=== PATIENT | female | born 1930 | race Caucasian/White ===

== ENCOUNTER 2019-06-02 10:58 | Inpatient (IN) | payer MEDICARE ==
[~2019-06-02] VITALS: Ht 152.4 cm; Wt 72.9 kg
[~2019-06-02 10:58] MED LIST: ABAT250V; ASPI81CH; ASPI81CH PO; ATOR40TA PO; BENZ100A PO; BUME2 PO; BUPR100 PO; Bactrim Ds Tab1 EACH PO; CARV25 PO; CARV6.25 PO; CEPH500 PO; CETI5; CITA20; CITA20 PO; FURO20 PO; Ferrous Sulfat325 MG; GABA300 PO; Keflex500 MG PO; LISI5 PO; Mucinex600 MG; Naprosyn500 MG PO; Norco 5-325 Ta1 EACH PO; OMEP10ER PO; PANT40 PO; POTA10T PO; SERT50 PO; Zofran Odt4 MG PO; Zofran Odt4 MG SL
[2019-06-02 11:46] LABS: BASOPHILS ABSOLUTE AUTO 0.06 K/mm3 (0.00-0.23); BASOPHILS PERCENT AUTO 1 % (0-2); EOSINOPHILS ABSOLUTE AUTO 0.09 K/mm3 (0.00-0.68); EOSINOPHILS PERCENT AUTO 1 % (0-6); Hematocrit 37.2 % (33.0-51.0); Hemoglobin 11.4 g/dL (11.5-16.0); IMMATURE GRAN ABSOLUTE AUTO 0.03 K/mm3 (0.00-0.10); IMMATURE GRAN PERCENT AUTO 1 % (0-1); LYMPHOCYTES ABSOLUTE AUTO 0.89 K/mm3 (0.84-5.20); LYMPHOCYTES PERCENT AUTO 14 % (21-46); MONOCYTES ABSOLUTE AUTO 0.89 K/mm3 (0.16-1.47); MONOCYTES PERCENT AUTO 14 % (4-13); Mean Corpuscular HGB 28.6 pg (26.0-34.0); Mean Corpuscular HGB Conc 30.6 g/dL (31.5-36.5); Mean Corpuscular Volume 94 fL (80-100); Mean Platelet Volume 10.1 fL (9.1-12.4); NEUTROPHILS ABSOLUTE AUTO 4.52 K/mm3 (1.96-9.15); NEUTROPHILS PERCENT AUTO 70 % (41-73); Platelet Count 212 K/mm3 (150-400); RDW Coefficient Variation 14.7 % (11.7-14.2); RDW Standard Deviation 50.8 fL (35.1-46.3); Red Blood Cell Count 3.98 M/mm3 (3.80-5.20); White Blood Cell Count 6.48 K/mm3 (4.00-11.30)
[2019-06-02 12:06] LABS: Alanine Aminotransfer (ALT/SGP 54 U/L (12-78); Albumin, Blood 3.7 g/dL (3.4-5.0); Albumin/Globulin Ratio 1.1 (0.8-1.8); Alk Phos 120 U/L (50-136); Anion Gap 6 mmol/L (6-16); Aspartate Aminotrans (AST/SGOT 66 U/L (12-37); Bilirubin, Total 1.8 mg/dL (0.1-1.0); Blood Urea Nitrogen 17 mg/dL (8-24); CO2, Blood 27 mmol/L (21-32); Calcium, Blood 9.5 mg/dL (8.5-10.1); Chloride, Blood 105 mmol/L (98-108); Creatinine, Blood 0.81 mg/dL (0.40-1.00); Globulin, Blood 3.4 g/dL (2.2-4.0); Glomerular Filtration Rate >60 (60-); Glucose, Blood 108 mg/dL (70-99); Potassium, Blood 3.1 mmol/L (3.5-5.5); Sodium, Blood 138 mmol/L (136-145); Total Protein, Blood 7.1 g/dL (6.4-8.2); Troponin I 0.046 ng/mL (0.000-0.040)
[2019-06-02] MEDS ORDERED: GABA300 PO (12:50)
[2019-06-02] MEDS ORDERED: TRAZ50 PO (12:51)
[2019-06-02] MEDS ORDERED: LOSA25 PO (12:52)
[2019-06-02] MEDS ORDERED: SERT25 PO (12:52)
[2019-06-02] MEDS ORDERED: METO25ER PO (12:52)
[2019-06-02] MEDS ORDERED: OMEP20ER PO (13:15)
[2019-06-02 16:12] LABS: International Normalized Ratio 1.21; Prothrombin Time Results 12.8 Sec (9.7-11.5)
--- NOTE | 2019-06-02 17:43 | NUR ---
CODE STATUS THIS RN TALKED WITH PT ABOUT CODE STATUS AND PT REPORTS SHE WANTS TO BE A DNR. THIS RN TALKED WITH DR. WALLACE AND NOTIFIED HIM OF THIS AND THAT PT WAS A FULL CODE. DR. WALLACE REPORTS HE WILL MAKE A NOTE OF THIS AND A PHYSICIAN WILL TALK WITH PT ABOUT CODE STATUS.
--- NOTE | 2019-06-02 18:57 | NUR ---
SHIFT SUMMARY PT IS A NEW ADMISSION THIS AFTERNOON FROM ED. PT IS ALERT AND ORIENTED X3. DENIES PAIN AND NAUSEA THIS SHIFT. APPETITE GOOD. IVF INFUSING WITHOUT DIFFICULTY. PT JUST VOIDED SINCE ADMITTED TO THE FLOOR AND URINE WAS DARK YELLOW. NO COMPLAINTS OF DIZZINESS WHEN UP TO BATHROOM. PT DOES HAVE SHORTNESS OF BREATH WITH EXERTION AND REPORTS THIS IS NORMAL FOR HER. NO DISTRESS AT THIS TIME. CALL LIGHT IN REACH. WILL CONTINUE TO MONITOR AND REPORT TO ONCOMING RN.
[2019-06-03 03:25] LABS: International Normalized Ratio 1.28; Prothrombin Time Results 13.5 Sec (9.7-11.5)
[2019-06-03 03:26] LABS: Anion Gap 5 mmol/L (6-16); Blood Urea Nitrogen 17 mg/dL (8-24); CO2, Blood 25 mmol/L (21-32); Calcium, Blood 8.4 mg/dL (8.5-10.1); Chloride, Blood 112 mmol/L (98-108); Creatinine, Blood 0.81 mg/dL (0.40-1.00); Glomerular Filtration Rate >60 (60-); Glucose, Blood 98 mg/dL (70-99); Potassium, Blood 3.4 mmol/L (3.5-5.5); Sodium, Blood 142 mmol/L (136-145)
--- NOTE | 2019-06-03 06:34 | NUR ---
SHIFT SUMMARY: PATIENT IS A&OX4, VERY [place], HEARING AIDE WAS LEFT AT HOME. AT START OF SHIFT PATIENT HAD HTN AND A HR OF A FIB @ 112. PATIENT WAS ASYMPTOMATIC. VS WERE MONITORED AND CHARGE NURSE LUISA AWARE. @ 2120 BP 157/89 HR A FIB 117. @ 2338 BP 132/91 HR A FIB 91, LOPRESSOR 12.5 MG WAS GIVEN PER MAY. THIS AM BP IS 140/77 HR A FIB 89.
--- NOTE | 2019-06-03 11:12 | NUR ---
PROVIDER CONSULT THIS RN PAGED DR. SANTILLAN WITH NUMBER PROVIDED. NO CALL BACK AT THIS TIME. WILL TRY AGAIN LATER [facility]
--- NOTE | 2019-06-03 17:22 | NUR ---
SHIFT SUMMARY PT HAS HAD NO COMPLAINTS THIS SHIFT. PT UP TO BATHROOM WITH ASSIST AND CONTINUES TO HAVE SHORTNESS OF BREATH WITH AMBULATION. HEART RATE HAS BEEN CONTROLLED THIS SHIFT. PT HAS A GOOD APPETITE WITH NO COMPLAINTS OF NAUSEA. NO ACUTE CHANGES THIS SHIFT. WILL CONTINUE TO MONITOR AND REPORT TO ONCOMING RN. CALL LIGHT IN REACH.
--- NOTE | 2019-06-04 04:44 | NUR ---
SHIFT SUMMARY PT IS A/O X4. NEEDS STANDBY ASSIST TO COMMODE. TELE HAS BEEN IN PLACE PER ORDERS. PT ON ROOM AIR DURING THE NIGHT. NO C/O OF PAIN, SOB, OR CHEST PAIN. TOLERATING PO INTAKE AND VOIDING. ASSISTED WITH ADL'S PRN.
[2019-06-04 05:18] LABS: BASOPHILS ABSOLUTE AUTO 0.05 K/mm3 (0.00-0.23); BASOPHILS PERCENT AUTO 1 % (0-2); EOSINOPHILS ABSOLUTE AUTO 0.29 K/mm3 (0.00-0.68); EOSINOPHILS PERCENT AUTO 6 % (0-6); Hematocrit 32.9 % (33.0-51.0); Hemoglobin 9.8 g/dL (11.5-16.0); IMMATURE GRAN ABSOLUTE AUTO 0.02 K/mm3 (0.00-0.10); IMMATURE GRAN PERCENT AUTO 0 % (0-1); LYMPHOCYTES ABSOLUTE AUTO 1.31 K/mm3 (0.84-5.20); LYMPHOCYTES PERCENT AUTO 25 % (21-46); MONOCYTES ABSOLUTE AUTO 0.65 K/mm3 (0.16-1.47); MONOCYTES PERCENT AUTO 13 % (4-13); Mean Corpuscular HGB 28.6 pg (26.0-34.0); Mean Corpuscular HGB Conc 29.8 g/dL (31.5-36.5); Mean Corpuscular Volume 96 fL (80-100); Mean Platelet Volume 10.5 fL (9.1-12.4); NEUTROPHILS ABSOLUTE AUTO 2.84 K/mm3 (1.96-9.15); NEUTROPHILS PERCENT AUTO 55 % (41-73); Platelet Count 172 K/mm3 (150-400); RDW Coefficient Variation 15.4 % (11.7-14.2); RDW Standard Deviation 54.4 fL (35.1-46.3); Red Blood Cell Count 3.43 M/mm3 (3.80-5.20); White Blood Cell Count 5.16 K/mm3 (4.00-11.30)
[2019-06-04 05:20] LABS: International Normalized Ratio 1.28; Prothrombin Time Results 13.5 Sec (9.7-11.5)
[2019-06-04 05:30] LABS: Anion Gap 4 mmol/L (6-16); Blood Urea Nitrogen 20 mg/dL (8-24); Bun/Creatinine Ratio 22.8 (12.0-20.0); CO2, Blood 26 mmol/L (21-32); Calcium, Blood 8.4 mg/dL (8.5-10.1); Chloride, Blood 112 mmol/L (98-108); Creatinine, Blood 0.88 mg/dL (0.40-1.00); Glomerular Filtration Rate >60 (60-); Glucose, Blood 105 mg/dL (70-99); Potassium, Blood 3.8 mmol/L (3.5-5.5); Sodium, Blood 142 mmol/L (136-145)
[2019-06-04] MEDS ORDERED: Metoprolol Tart25 MG PO (16:58)
[2019-06-04] MEDS ORDERED: FURO20 PO (16:59)
[2019-06-04] MEDS ORDERED: Zofran4 MG PO (17:00)
[2019-06-04] MEDS ORDERED: Coumadin2 MG PO (17:01)
--- NOTE | 2019-06-04 17:49 | NUR ---
DISCHARGE NOTE PT DISCHARGED TO HOME. PT LEFT ROOM PRIOR TO THIS NOTE VIA WHEELCHAIR AND RN ESCORT. IV DC'D AND BELONGINGS RETURNED. DISCHARGE INSTRUCTIONS DISCUSSED WITH PATIENT INCLUDING EXTENSIVE COUMADIN EDUCATION, ALL QUESTIONS ANSWERED. PT AGREES TO FOLLOW UP WITH [facility] FOR FOLLOW UP APPOINTMENT AND LABS.
== END 2019-06-04 17:36 | disposition home or self-care (01) | DRG 291 ==
LOC: ER 10:58 → MEDS 13:55
PROVIDERS: Emergency Medicine; Family Medicine; ADMIT Internal Medicine Endocrinology, Diabetes & Metabolism
DX: I13.0 Hypertensive heart and chronic kidney disease with heart failure and stage 1 through stage 4 chronic kidney disease, or unspecified chronic kidney disease (principal); I50.23 Acute on chronic systolic (congestive) heart failure; I24.8 Other forms of acute ischemic heart disease; I48.19 Other persistent atrial fibrillation; E87.6 Hypokalemia; F32.9 Major depressive disorder, single episode, unspecified; G31.84 Mild cognitive impairment of uncertain or unknown etiology; I25.10 Atherosclerotic heart disease of native coronary artery without angina pectoris; I25.2 Old myocardial infarction; I27.20 Pulmonary hypertension, unspecified; K21.9 Gastro-esophageal reflux disease without esophagitis; N18.3 Chronic kidney disease, stage 3 (moderate); D64.9 Anemia, unspecified; I08.1 Rheumatic disorders of both mitral and tricuspid valves; E78.5 Hyperlipidemia, unspecified; I42.9 Cardiomyopathy, unspecified; I95.1 Orthostatic hypotension; E86.0 Dehydration; G47.00 Insomnia, unspecified; M17.0 Bilateral primary osteoarthritis of knee
CPT/HCPCS: 36415; 70450; 80048; 80053; 84484; 85025; 85610; 93005; 93010; 93306; 96360; 97110; 97116; 97162; 97165; 97535; 99285-25; A9270-GY; J1650; J3480; J7030

== ENCOUNTER 2019-07-09 14:45 | Emergency (ER) | payer MEDICARE ==
[~2019-07-09] VITALS: Ht 152.4 cm; Wt 81.7 kg
[~2019-07-09 14:45] MED LIST changes: +Coumadin2 MG PO; +LOSA25 PO; +METO25ER PO; +Metoprolol Tart25 MG PO; +OMEP20ER PO; +SERT25 PO; +TRAZ50 PO; +Zofran4 MG PO
[2019-07-09] MEDS ORDERED: LOSARTAN POTASS25 M2 PO (15:07)
[2019-07-09] MEDS ORDERED: OMEPRAZOLE MAGN20 MG PO (15:42)
[2019-07-09] MEDS ORDERED: SERT25 PO (15:43)
[2019-07-09] MEDS ORDERED: TRAZ50 PO (15:43)
[2019-07-09] MEDS ORDERED: ONDA4 PO (15:43)
[2019-07-09] MEDS ORDERED: Coumadin2 MG PO (15:44)
[2019-07-09 15:50] LABS: BASOPHILS ABSOLUTE AUTO 0.04 K/mm3 (0.00-0.23); BASOPHILS PERCENT AUTO 1 % (0-2); EOSINOPHILS ABSOLUTE AUTO 0.02 K/mm3 (0.00-0.68); EOSINOPHILS PERCENT AUTO 0 % (0-6); Hematocrit 37.1 % (33.0-51.0); Hemoglobin 10.7 g/dL (11.5-16.0); IMMATURE GRAN ABSOLUTE AUTO 0.03 K/mm3 (0.00-0.10); IMMATURE GRAN PERCENT AUTO 0 % (0-1); LYMPHOCYTES ABSOLUTE AUTO 0.84 K/mm3 (0.84-5.20); LYMPHOCYTES PERCENT AUTO 11 % (21-46); MONOCYTES PERCENT AUTO 12 % (4-13); Mean Corpuscular HGB 26.1 pg (26.0-34.0); Mean Corpuscular HGB Conc 28.8 g/dL (31.5-36.5); Mean Corpuscular Volume 91 fL (80-100); Mean Platelet Volume 10.5 fL (9.1-12.4); NEUTROPHILS ABSOLUTE AUTO 5.97 K/mm3 (1.96-9.15); NEUTROPHILS PERCENT AUTO 77 % (41-73); NRBC ABSOLUTE 0.07 K/mm3 (0.00-0.02); NRBC Auto 0.9 /100 WBC (0.0-0.2); Platelet Count 169 K/mm3 (150-400); RDW Coefficient Variation 16.9 % (11.7-14.2); RDW Standard Deviation 56.1 fL (35.1-46.3)
[2019-07-09 16:09] LABS: International Normalized Ratio 1.8; Prothrombin Time Results 18.6 Sec (9.7-11.5)
[2019-07-09 16:10] LABS: Anion Gap 8 mmol/L (6-16); Blood Urea Nitrogen 35 mg/dL (8-24); Bun/Creatinine Ratio 39.5 (12.0-20.0); CO2, Blood 25 mmol/L (21-32); Calcium, Blood 9.2 mg/dL (8.5-10.1); Chloride, Blood 105 mmol/L (98-108); Creatinine, Blood 0.89 mg/dL (0.40-1.00); Glomerular Filtration Rate >60 (60-); Glucose, Blood 129 mg/dL (70-99); Potassium, Blood 4.3 mmol/L (3.5-5.5); Sodium, Blood 138 mmol/L (136-145)
== END 2019-07-09 18:19 | disposition home or self-care (01) ==
LOC: ER 14:45
PROVIDERS: Emergency Medicine
DX: I50.9 Heart failure, unspecified (principal); I48.91 Unspecified atrial fibrillation; N18.3 Chronic kidney disease, stage 3 (moderate); I25.10 Atherosclerotic heart disease of native coronary artery without angina pectoris
CPT/HCPCS: 36415; 80048; 83880; 85025; 85610; 96374; 99285-25; J1940

== ENCOUNTER 2019-07-20 15:55 | Inpatient (IN) | payer MEDICARE ==
[~2019-07-20] VITALS: Ht 152.4 cm; Wt 73.2 kg
[~2019-07-20 15:55] MED LIST changes: +LOSARTAN POTASS25 M2 PO; +OMEPRAZOLE MAGN20 MG PO; +ONDA4 PO
[2019-07-20 18:29] LABS: BASOPHILS ABSOLUTE AUTO 0.04 K/mm3 (0.00-0.23); BASOPHILS PERCENT AUTO 1 % (0-2); EOSINOPHILS ABSOLUTE AUTO 0.09 K/mm3 (0.00-0.68); EOSINOPHILS PERCENT AUTO 2 % (0-6); Hematocrit 36.4 % (33.0-51.0); Hemoglobin 10.4 g/dL (11.5-16.0); IMMATURE GRAN ABSOLUTE AUTO 0.03 K/mm3 (0.00-0.10); IMMATURE GRAN PERCENT AUTO 1 % (0-1); LYMPHOCYTES ABSOLUTE AUTO 1.22 K/mm3 (0.84-5.20); LYMPHOCYTES PERCENT AUTO 20 % (21-46); MONOCYTES ABSOLUTE AUTO 1.03 K/mm3 (0.16-1.47); MONOCYTES PERCENT AUTO 17 % (4-13); Mean Corpuscular HGB 25.4 pg (26.0-34.0); Mean Corpuscular HGB Conc 28.6 g/dL (31.5-36.5); Mean Corpuscular Volume 89 fL (80-100); Mean Platelet Volume 11.2 fL (9.1-12.4); NEUTROPHILS PERCENT AUTO 60 % (41-73); NRBC ABSOLUTE 0.02 K/mm3 (0.00-0.02); NRBC Auto 0.3 /100 WBC (0.0-0.2); Platelet Count 155 K/mm3 (150-400); RDW Coefficient Variation 17.4 % (11.7-14.2); RDW Standard Deviation 56.6 fL (35.1-46.3); Red Blood Cell Count 4.09 M/mm3 (3.80-5.20); White Blood Cell Count 6.01 K/mm3 (4.00-11.30)
[2019-07-20 18:46] LABS: International Normalized Ratio 1.53
[2019-07-20 18:53] LABS: Alanine Aminotransfer (ALT/SGP 35 U/L (12-78); Albumin, Blood 3.2 g/dL (3.4-5.0); Alk Phos 139 U/L (50-136); Anion Gap 6 mmol/L (6-16); Aspartate Aminotrans (AST/SGOT 35 U/L (12-37); Bilirubin, Total 1.4 mg/dL (0.1-1.0); Blood Urea Nitrogen 27 mg/dL (8-24); Bun/Creatinine Ratio 30.8 (12.0-20.0); CO2, Blood 27 mmol/L (21-32); Calcium, Blood 8.8 mg/dL (8.5-10.1); Chloride, Blood 106 mmol/L (98-108); Creatinine, Blood 0.88 mg/dL (0.40-1.00); Globulin, Blood 3.3 g/dL (2.2-4.0); Glomerular Filtration Rate >60 (60-); Glucose, Blood 114 mg/dL (70-99); Potassium, Blood 3.9 mmol/L (3.5-5.5); Sodium, Blood 139 mmol/L (136-145); Total Protein, Blood 6.5 g/dL (6.4-8.2); Troponin I 0.095 ng/mL (0.000-0.040)
--- NOTE | 2019-07-20 19:30 | NUR ---
ASSUMED CARE. SYED IS AOX3 BUT HAS PERIODS OF FORGETFULNESS. "I PEE'D AND NOW I AM PEEING AGAIN." SHE STATED. EDUCATION WAS DONE ON LASIX AND HOW IT WORKS. 16F MAGALLANES CATHETER PLACED WITH NO DIFFICULTY. CLEAR YELLOW URINE ON RETURN. ATTACHED TO STAT LOCK ON RIGHT LEG. LINEN CHANGED DUE TO SATURATION. LUNG SOUNDS WITH FINE CRACKLES, NO COUGH, SOB ON EXERTION. CLEAN ATTENDS APPLIED. REDNESS NOTED IN CREASE OF GROIN, BABY POWDER APPLIED. REPOSITIONED UP IN BED. WARM BLANKETS WERE GIVEN. PHARMACY CALLED ASKING FOR WARFARIN DOSAGE AMOUNT, PATIENT STATES SHE DOES NOT KNOW AMOUNT, INFORMED PHARMACY. CALL LIGHT GIVEN. WILL CONTINUE TO MONITOR.
[2019-07-20 20:07] LABS: Source, Urine Catheter
[2019-07-20 20:10] LABS: Appearance, Urine Clear (Clear); Bilirubin, Urine Neg (Neg); Blood, Urine Neg (Neg); Color, Urine Yellow (P-Yellow); Glucose Qualitative, Urine Neg (Neg); Ketones, Urine Neg (Neg); Leukocyte Esterase, Urine Neg (Neg); Nitrite, Urine Neg (Neg); Protein, Urine Neg (Neg); Urobilinogen, Urine NORM (Normal); pH, Urine 6.5 (5.0-8.0)
--- NOTE | 2019-07-20 21:49 | NUR ---
PATIENT SON WAS CALLED FOR DOSAGE AMOUNT, HE RETURNED CALL. STATES 2MG DAILY. GAVE DOSE AMOUNT TO PHARMACY, ALSO DOUBLE CHECKED MED LIST. GAVE COUMADIN 5MG PER PHARMACY ORDER. CATHETER PATIENT AND DRAINING WELL. TAKES MEDS IN PUDDING. GAVE ICE WATER. NO OTHER NEEDS NOTED. STATES SHE WILL BE GOING TO SLEEP NOW.
--- NOTE | 2019-07-21 00:51 | NUR ---
SYED IS SLEEPING COMFORTABLY, NO SIGNS OF DISTRESS. SHE IS SIDEWAYS IN THE BED. WHEN AWAKENING HER SHE SAID SHE DOES NOT WANT TO MOVE, SHE IS COMFORTABLE. CATHETER IS STILL PATENT AND FLOWING.
--- NOTE | 2019-07-21 04:47 | NUR ---
SHIFT SUMMARY: 89 Y/O ADMITTED FOR CHF EXACERBATION. AOX3 FORGETFUL AT TIMES. COOPERATIVE. LUNG SOUNDS FINE CRACKLES THROUGHOUT, COUGH NON-PRODUCTIVE. PITTING EDEMA FROM ANKLES TO MID TORSAL. REDNESS NOTED TO INNER THIGHS, GROIN, AND SIDES OF ABDOMIN FROM SWELLING. NO PAIN NOTED. CATHETER 16F PLACED FOR STRICT I&O. WITH 1575 OUTPUT OF YET. BUT SWELLING IS STILL PRESENT. MEDICATIONS TAKEN WITH PUDDING, PER EMAR. APPETITE GOOD. TELEMETRY REPORTS AFIB IN THE 80'S. VS WNL, DID HAVE SLIGHT TACHYCARDIA THIS AM. NO CARDIAC SYMPTOMS. TROPONIN DRAWN THIS AM WAS 0.098 SLIGHTLY ELEVATED. REDNESS AND SKIN TEAR TO THE RIGHT SIDE OF GROIN, POWDER APPLIED. IV REMAINED PATENT. UA WAS NEGATIVE FOR UTI. USES CALL LIGHT APPROPRIATLY. WILL CONTINUE TO MONITOR TILL DAY SHIFT TAKES OVER.
[2019-07-21 06:37] LABS: Anion Gap 6 mmol/L (6-16); Blood Urea Nitrogen 22 mg/dL (8-24); Bun/Creatinine Ratio 26.8 (12.0-20.0); CO2, Blood 29 mmol/L (21-32); Calcium, Blood 8.7 mg/dL (8.5-10.1); Chloride, Blood 105 mmol/L (98-108); Creatinine, Blood 0.82 mg/dL (0.40-1.00); Glomerular Filtration Rate >60 (60-); Glucose, Blood 109 mg/dL (70-99); Potassium, Blood 3.5 mmol/L (3.5-5.5); Sodium, Blood 140 mmol/L (136-145)
[2019-07-21 06:44] LABS: International Normalized Ratio 1.64; Prothrombin Time Results 17.1 Sec (9.7-11.5)
--- NOTE | 2019-07-21 11:22 | NUR ---
Initial Visit: Palliative Care Consult for Symptom Management and Medicaly Fragile. Pt is A&OX4 and denies pain at this time. Pt reports mild dyspnea at rest that worsens with exertion. Pt denies nausea and anxiety at this time. Pt reports mild depression. Engaged in therapeutic conversation regarding developing plans for the future. Pt reports living alone but recently her son Lenin has moved in with her to assist with her needs. Discussed the importance of planning for the furture as her chronic illness takes its coarse including the need for considering caregivers or higher level of care. Educated on disease process including trajectory. Pt appears appreciative of conversation but does not seem to be abosrbing conversation well. Received verbal permission to call [facility] to discuss further. Spoke with Bedside [employer]TUNATO Kenny and discussed case. Attempted to call [facility] Phel[facility] with contact number in chart with no success. Phone number is not active. Will discuss with [employer] Trainer Maintenance Worker Mirta to determine a good contact number.
--- NOTE | 2019-07-21 16:42 | NUR ---
SHIFT SUMMARY PT AXO TO SELF, PLACE AND FOLLOWING DIRECTIONS BUT FORGETFUL AT TIMES. IV PATENT AND SALINE LOCKED. PT ON TELE, RUNNING AFIB AT ABOUT 98 PER TECH. PT SLEEPING THROUGHOUT THE DAY. PHYSICAL THERAPY, OCCUPATIONAL THERAPY AND PALLIATIVE CARE WORKED WITH PATIENT, SEE NOTES. VSS. PT WEIGHT MEASURED AT 1515 AT 176 LBS. 2325ML OUT VIA MAGALLANES SO FAR THIS SHIFT, PATENT AND DRAINING CLEAR YELLOW URINE. PT DENIES PAIN, SOB AND NV. BED IN LOW POSITION, CALL LIGHT WITHIN REACH.
--- NOTE | 2019-07-21 19:28 | NUR ---
ASSUMED CARE. SYED IS SITTING UP IN HER CHAIR. WATCHING TV. REPOSITIONED HER TO FACE THE BED, SO SHE CAN PUT HER FEET UP. WRAPPED HER WITH COVERS SHE IS COLD. EMPTIED THE CATHETER, 900 OUTPUT NOTED. SWELLING TO SIDES, LEGS, HIPS ARE ALL DOWN TO +1 EDEMA. GROIN IS TRACE. REDNESS THAT WAS THERE LAST NIGHT IS JUST PINK. LUNG SOUNDS ARE CLEAR IN UPPER LOBES AND DIMINISHED IN BASES. SHE STATES SHE IS FEELING ALOT BETTER. WILL CONTINUE TO MONITOR. CALL LIGHT IN REACH.
--- NOTE | 2019-07-21 23:26 | NUR ---
SYED IS ASLEEP IN BED, TV STILL ON. SHE IS BUNDLED UP TIGHT ROOM IS COLD DISPITE THERMASTAT BEING ALL THE WAY UP. CATHETER PATENT AND DRAINING. CALL LIGHT IN REACH.
--- NOTE | 2019-07-22 05:00 | NUR ---
SHIFT SUMMARY: 89 Y/O ADMITTED FOR CHF EXACERBATION. SYED'S EDEMA HAS IMPROVED FROM 3+ DOWN TO 1+ TRACE. CATHETER HAS PUT OUT 2200 CC SO FAR OF URINE, AND IT WILL PROBALLY NEED TO BE EMPTIED AGAIN BEFORE SHIFT CHANGE. LUNG SOUNDS ARE DIMINISHED BUT CLEAR. SHE HAD A GOOD NIGHT OF REST ALL NIGHT WITH NO ACUTE CHANGES OR CONCERNS. WEIGHT THIS AM SHOWED A 4 1/2 LBS LOSE SINCE YESTERDAY. VS HAVE REMAINED STABLE. SON CALLED AND PLANS ON SEEING HER IN THE AM. TELEMETRY CONTINUES TO SHOW AFIB IN RACHEL 80'S. REDNESS IN GROIN IS IMPROVED. WILL REPORT TO DAY SHIFT THE CHANGES.
[2019-07-22 05:31] LABS: International Normalized Ratio 2.39; Prothrombin Time Results 24.3 Sec (9.7-11.5)
[2019-07-22 09:30] LABS: BASOPHILS ABSOLUTE AUTO 0.03 K/mm3 (0.00-0.23); BASOPHILS PERCENT AUTO 1 % (0-2); EOSINOPHILS ABSOLUTE AUTO 0.21 K/mm3 (0.00-0.68); EOSINOPHILS PERCENT AUTO 3 % (0-6); Hematocrit 35.8 % (33.0-51.0); Hemoglobin 10.3 g/dL (11.5-16.0); IMMATURE GRAN ABSOLUTE AUTO 0.02 K/mm3 (0.00-0.10); IMMATURE GRAN PERCENT AUTO 0 % (0-1); LYMPHOCYTES ABSOLUTE AUTO 0.84 K/mm3 (0.84-5.20); LYMPHOCYTES PERCENT AUTO 13 % (21-46); MONOCYTES ABSOLUTE AUTO 0.68 K/mm3 (0.16-1.47); MONOCYTES PERCENT AUTO 11 % (4-13); Mean Corpuscular HGB 25.4 pg (26.0-34.0); Mean Corpuscular HGB Conc 28.8 g/dL (31.5-36.5); Mean Corpuscular Volume 88 fL (80-100); Mean Platelet Volume 11.1 fL (9.1-12.4); NEUTROPHILS ABSOLUTE AUTO 4.66 K/mm3 (1.96-9.15); NEUTROPHILS PERCENT AUTO 72 % (41-73); Platelet Count 122 K/mm3 (150-400); RDW Coefficient Variation 17.3 % (11.7-14.2); RDW Standard Deviation 55.5 fL (35.1-46.3); Red Blood Cell Count 4.06 M/mm3 (3.80-5.20); White Blood Cell Count 6.44 K/mm3 (4.00-11.30)
[2019-07-22 09:52] LABS: Alanine Aminotransfer (ALT/SGP 29 U/L (12-78); Albumin, Blood 2.6 g/dL (3.4-5.0); Albumin/Globulin Ratio 0.8 (0.8-1.8); Alk Phos 115 U/L (50-136); Anion Gap 8 mmol/L (6-16); Aspartate Aminotrans (AST/SGOT 23 U/L (12-37); Bilirubin, Total 0.9 mg/dL (0.1-1.0); Blood Urea Nitrogen 21 mg/dL (8-24); Bun/Creatinine Ratio 26.3 (12.0-20.0); CO2, Blood 31 mmol/L (21-32); Calcium, Blood 8.4 mg/dL (8.5-10.1); Chloride, Blood 101 mmol/L (98-108); Globulin, Blood 3.3 g/dL (2.2-4.0); Glomerular Filtration Rate >60 (60-); Glucose, Blood 144 mg/dL (70-99); Sodium, Blood 140 mmol/L (136-145); Total Protein, Blood 5.9 g/dL (6.4-8.2)
--- NOTE | 2019-07-22 17:14 | NUR ---
SHIFT SUMMARY PT ALERT AND ORIENTED THIS AFTERNOON. THIS AM THE PT WAS SLEEPY, WOULD WAKE TO ANSWER QUESTIONS THEN RETURN TO SLEEP. AFTER LUNCH THE PT HAS BEEN MUCH MORE ALERT AND INTERACTIVE WITH CARE. PT WORKED WITH OT THIS AFTERNOON. PT 1 PERSON ASSIST W/FFW TO THE RESTROOM. PT HAS BEEN SITTING UP IN A CHAIR THROUGHOUT THIS AFTERNOON. PT CURRENTLY SITTING UP IN CHAIR LOOKING OUT THE WINDOW AWAITING DINNER.
[2019-07-23 05:18] LABS: International Normalized Ratio 2.59; Prothrombin Time Results 26.3 Sec (9.7-11.5)
[2019-07-23 05:19] LABS: BASOPHILS ABSOLUTE AUTO 0.03 K/mm3 (0.00-0.23); BASOPHILS PERCENT AUTO 0 % (0-2); EOSINOPHILS ABSOLUTE AUTO 0.17 K/mm3 (0.00-0.68); EOSINOPHILS PERCENT AUTO 2 % (0-6); Hematocrit 37.2 % (33.0-51.0); Hemoglobin 10.7 g/dL (11.5-16.0); IMMATURE GRAN ABSOLUTE AUTO 0.03 K/mm3 (0.00-0.10); IMMATURE GRAN PERCENT AUTO 0 % (0-1); LYMPHOCYTES ABSOLUTE AUTO 1.03 K/mm3 (0.84-5.20); LYMPHOCYTES PERCENT AUTO 13 % (21-46); MONOCYTES ABSOLUTE AUTO 1.17 K/mm3 (0.16-1.47); MONOCYTES PERCENT AUTO 14 % (4-13); Mean Corpuscular HGB 25.2 pg (26.0-34.0); Mean Corpuscular HGB Conc 28.8 g/dL (31.5-36.5); Mean Corpuscular Volume 88 fL (80-100); Mean Platelet Volume 10.9 fL (9.1-12.4); NEUTROPHILS ABSOLUTE AUTO 5.76 K/mm3 (1.96-9.15); NEUTROPHILS PERCENT AUTO 70 % (41-73); Platelet Count 140 K/mm3 (150-400); RDW Coefficient Variation 17.7 % (11.7-14.2); RDW Standard Deviation 56.8 fL (35.1-46.3); Red Blood Cell Count 4.24 M/mm3 (3.80-5.20); White Blood Cell Count 8.19 K/mm3 (4.00-11.30)
[2019-07-23 05:27] LABS: Anion Gap 8 mmol/L (6-16); Blood Urea Nitrogen 18 mg/dL (8-24); Bun/Creatinine Ratio 23.1 (12.0-20.0); CO2, Blood 32 mmol/L (21-32); Calcium, Blood 8.2 mg/dL (8.5-10.1); Chloride, Blood 97 mmol/L (98-108); Creatinine, Blood 0.78 mg/dL (0.40-1.00); Glomerular Filtration Rate >60 (60-); Glucose, Blood 107 mg/dL (70-99); Potassium, Blood 3.2 mmol/L (3.5-5.5); Sodium, Blood 137 mmol/L (136-145)
--- NOTE | 2019-07-23 06:43 | NUR ---
07/23/19 0610 COAL PIPELINE OPERATOR HELPED HER TO STAND UP SCALE FOR WT. SLEPT POORLY FOR UNDETERMINED REASONS. VITALS STABLE. SLIGHT FORGETFULNESS LAST NIGHT AND WANTED TO GET UP IN CHAIR AT 2:30AM. THOUGHT IT WAS THE DAYTIME. RN RE-ORIENTED TO SURROUNDINGS.
[2019-07-23] MEDS ORDERED: POTCHL20ER PO (18:30)
[2019-07-23] MEDS ORDERED: MAGNESIUM OXID500 MG PO (18:31)
--- NOTE | 2019-07-23 19:01 | NUR ---
SHIFT SUMMARY: PATIENT MEDICALLY STABLE & READY FOR DISCHARGE. DISCHARGE PACKET PRINTED; MAGALLANES D/C'd; IV ACCESS D/C'D; MED LIST FAXED TO [facility]. SON TO BE CALLED. REPORT GIVEN TO ONCOMING RN.
--- NOTE | 2019-07-23 19:39 | NUR ---
Discharge instructions reviewed with patient. Patient verbalizes understanding. Copy given to patient to take home. Called and spoke with Lenin, gave him discharge instructions over the phone. Day shift nurse faxed prescriptions to [facility] pharmacy. Gait belt given to pt to take home. History, Chart, Medications and Allergies reviewed before start of procedure.Patient States Post-Procedure ride home has been arranged. Discharged via wheelchair to private car for ride home.
== END 2019-07-23 20:02 | disposition home health service (06) | DRG 291 ==
LOC: MEDS 15:55
PROVIDERS: Family Medicine; ADMIT Internal Medicine
DX: I13.0 Hypertensive heart and chronic kidney disease with heart failure and stage 1 through stage 4 chronic kidney disease, or unspecified chronic kidney disease (principal); I50.23 Acute on chronic systolic (congestive) heart failure; I24.8 Other forms of acute ischemic heart disease; Z66 Do not resuscitate; R53.1 Weakness; I48.0 Paroxysmal atrial fibrillation; Z79.01 Long term (current) use of anticoagulants; N18.3 Chronic kidney disease, stage 3 (moderate); K21.9 Gastro-esophageal reflux disease without esophagitis; I27.20 Pulmonary hypertension, unspecified; F32.9 Major depressive disorder, single episode, unspecified; E87.6 Hypokalemia; R41.89 Other symptoms and signs involving cognitive functions and awareness
CPT/HCPCS: 36415; 71045; 80048; 80053; 81003; 83880; 84484; 85025; 85610; 93005; 93010; 94761; 97112; 97116; 97162; 97166; 97530; 97535; A9270; A9270-GY; J1940

== ENCOUNTER → 2019-10-13 | Outpatient (CLI) | payer MEDICARE ==
[~2019-10-13] MED LIST changes: +MAGNESIUM OXID500 MG PO; +POTCHL20ER PO
[2019-10-13 15:24] LABS: BASOPHILS ABSOLUTE AUTO 0.04 K/mm3 (0.00-0.23); BASOPHILS PERCENT AUTO 1 % (0-2); EOSINOPHILS ABSOLUTE AUTO 0.17 K/mm3 (0.00-0.68); EOSINOPHILS PERCENT AUTO 3 % (0-6); Hematocrit 40.3 % (33.0-51.0); Hemoglobin 12.1 g/dL (11.5-16.0); IMMATURE GRAN ABSOLUTE AUTO 0.02 K/mm3 (0.00-0.10); IMMATURE GRAN PERCENT AUTO 0 % (0-1); LYMPHOCYTES ABSOLUTE AUTO 1.56 K/mm3 (0.84-5.20); LYMPHOCYTES PERCENT AUTO 31 % (21-46); MONOCYTES ABSOLUTE AUTO 0.67 K/mm3 (0.16-1.47); MONOCYTES PERCENT AUTO 13 % (4-13); Mean Corpuscular HGB 26.3 pg (26.0-34.0); Mean Corpuscular Volume 88 fL (80-100); Mean Platelet Volume 9.6 fL (9.1-12.4); NEUTROPHILS ABSOLUTE AUTO 2.66 K/mm3 (1.96-9.15); NEUTROPHILS PERCENT AUTO 52 % (41-73); Platelet Count 187 K/mm3 (150-400); RDW Coefficient Variation 20.4 % (11.7-14.2); RDW Standard Deviation 64.8 fL (35.1-46.3); White Blood Cell Count 5.12 K/mm3 (4.00-11.30)
[2019-10-13 15:52] LABS: Albumin, Blood 3.9 g/dL (3.4-5.0); Albumin/Globulin Ratio 0.9 (0.8-1.8); Bilirubin, Total 0.7 mg/dL (0.1-1.0); Bun/Creatinine Ratio 23.4 (12.0-20.0); Calcium, Blood 9.2 mg/dL (8.5-10.1); Creatinine, Blood 1.07 mg/dL (0.40-1.00); Globulin, Blood 4.3 g/dL (2.2-4.0); Potassium, Blood 4.9 mmol/L (3.5-5.5); Total Protein, Blood 8.2 g/dL (6.4-8.2)
== END | disposition home or self-care (01) ==
LOC: LAB SHORT 15:08 → LAB EV 15:08
PROVIDERS: Physician Assistant Surgical
DX: R55 Syncope and collapse (principal)
CPT/HCPCS: 80053; 85025

== ENCOUNTER → 2020-01-25 | Outpatient (CLI) | payer MEDICARE ==
[2020-01-27 13:32] LABS: CORONAVIRUS (COVID19) CSH-NRL Negative (Negative)
== END | disposition home or self-care (01) ==
LOC: LAB SHORT 18:48 → LAB 18:48
PROVIDERS: Chiropractor
DX: R06.02 Shortness of breath (principal); Z20.828 Contact with and (suspected) exposure to other viral communicable diseases
CPT/HCPCS: U0003